=== PATIENT | female | born 1950 | race African-American/Black ===

== ENCOUNTER 2017-08-21 06:43 | Emergency (ER) | payer MEDICARE, OTHER ==
[2017-08-21] MEDS ORDERED: ACETAMINOPHEN WITH CODEINE 120-12 MG/5 ML UDCUP PO ONE (07:35)
--- NOTE | 2017-08-21 08:18 | RADIOLOGY REPORT (SQ) ---
EXAM DESCRIPTION: CHEST PA/LAT COMPLETED DATE/TIME: 08/21/2017 7:57 am REASON FOR STUDY: productive cough COMPARISON: None. EXAM PARAMETERS: NUMBER OF VIEWS: two views TECHNIQUE: Digital Frontal and Lateral radiographic views of the chest acquired. RADIATION DOSE: NA LIMITATIONS: none FINDINGS: LUNGS AND PLEURA: No opacities, masses or pneumothorax. No pleural effusion. MEDIASTINUM AND HILAR STRUCTURES: No masses or contour abnormalities. HEART AND VASCULAR STRUCTURES: Heart normal size. No evidence for failure. BONES: No acute findings. HARDWARE: None in the chest. OTHER: No other significant finding. IMPRESSION: NO SIGNIFICANT RADIOGRAPHIC FINDING IN THE CHEST. TECHNICAL DOCUMENTATION: JOB ID: [id number] [employer]- All Rights Reserved Reading location - IP/workstation name: [email or web address]
--- NOTE | 2017-08-21 08:32 | ER Document Report ---
ED Flu Like - General Chief Complaint: Flu Symptoms Stated Complaint: BODY ACHES Time Seen by Provider: 08/21/17 07:26 Mode of Arrival: Ambulatory Information source: Patient Notes: Patient is a 67-year-old female who presents to the ER today for 1 week of productive cough,, intermittent feelings of hot flashes and chills, she has not taken her temperature. She admits to sinus pressure in her face and headache. She admits to runny nose and sore throat, hoarse voice. Patient has no history of asthma or COPD. She denies any shortness of breath or wheezing. TRAVEL OUTSIDE OF THE [place] IN LAST 30 DAYS: No - Related Data Allergies/Adverse Reactions: ampicillin [Ampicillin] Allergy (Verified 03/07/16 11:35) Past Medical History - General Information source: Patient - Social History Smoking Status: Never Smoker Frequency of alcohol use: None Drug Abuse: None Family History: Hypertension Patient has suicidal ideation: No Patient has homicidal ideation: No - Past Medical History Cardiac Medical History: Reports: Hx Hypertension Renal/ Medical History: Denies: Hx Peritoneal Dialysis Past Surgical History: Reports: Hx Appendectomy, Hx Tonsillectomy, Hx Tubal Ligation - Immunizations Immunizations up to date: Yes Hx Diphtheria, Pertussis, Tetanus Vaccination: Yes Review of Systems - Review of Systems Constitutional: See HPI EENT: See HPI Cardiovascular: No symptoms reported Respiratory: See HPI Gastrointestinal: No symptoms reported Genitourinary: No symptoms reported Female Genitourinary: No symptoms reported Musculoskeletal: No symptoms reported Skin: No symptoms reported Hematologic/Lymphatic: No symptoms reported Neurological/Psychological: No symptoms reported Physical Exam - Vital signs Vitals: Temp Pulse Resp BP Pulse Ox 99.4 F 87 20 168/80 H 97 08/21/17 06:49 08/21/17 06:49 08/21/17 06:49 08/21/17 06:49 08/21/17 06:49 - Notes Notes: PHYSICAL EXAMINATION: GENERAL: Mildly ill-appearing, but in no acute distress. HEAD: Atraumatic, normocephalic. EYES: Pupils equal round and reactive to light, extraocular movements intact, sclera anicteric, conjunctiva are normal. ENT: ear canals without erythema or foreign body, TMs pearly dudley with good bony landmarks, nares with mucoid discharge , oropharynx erythematous without enlarged tonsils without exudates. Moist mucous membranes. maxillary and frontal sinuses tender to palpation NECK: Normal range of motion, supple without lymphadenopathy LUNGS: Cough, otherwise CTAB and equal. No wheezes rales or rhonchi. HEART: Regular rate and rhythm without murmurs EXTREMITIES: Normal range of motion, no pitting edema. No cyanosis. NEUROLOGICAL: Cranial nerves grossly intact. Normal sensory/motor exams. PSYCH: Normal mood, normal affect. SKIN: Warm, Dry, normal turgor, no rashes or lesions noted Course - Re-evaluation Re-evalutation: 08/21/17 08:33 Chest x-ray negative for any acute pathology, with length of patient's symptoms I will treat her with antibiotic and cough medication. - Vital Signs Vital signs: Temp Pulse Resp BP Pulse Ox 99.4 F 87 20 168/80 H 97 08/21/17 06:49 08/21/17 06:49 08/21/17 06:49 08/21/17 06:49 08/21/17 06:49 Discharge - Discharge Clinical Impression: Bronchitis Sinusitis Qualifiers: Sinusitis location: maxillary Chronicity: acute Recurrence: non-recurrent Qualified Code(s): J01.00 - Acute maxillary sinusitis, unspecified Condition: Stable Disposition: HOME, SELF-CARE Additional Instructions: Return immediately for any new or worsening symptoms. Follow up with primary care provider, call tomorrow to make followup appointment. Prescriptions: Hydrocodone Bit/Homatropine [Hycodan Syrup 5-1.5 mg/5 ml Ud Cup] 5 ml PO Q4HP PRN #120 ml PRN Reason: Azithromycin [Zithromax 250 mg Tablet] 250 mg PO ASDIR PRN #6 tablet PRN Reason: Fluticasone Propionate [Flonase Nasal [place] 50 Mcg/[place] 16 gm] 2 sprays NASL Q12 #1 inhaler Forms: Return to Work
[2017-08-21 08:47] VITALS: BP 146/71
== END 2017-08-21 08:47 | disposition home or self-care (01) ==
LOC: ER 06:43
DX: J01.00 Acute maxillary sinusitis, unspecified (principal); J40 Bronchitis, not specified as acute or chronic; R05 Cough; R68.83 Chills (without fever); R51 Headache; J02.9 Acute pharyngitis, unspecified; R49.0 Dysphonia; Z88.0 Allergy status to penicillin; I10 Essential (primary) hypertension
CPT/HCPCS: 99283; 71046; A9270; J3490

== ENCOUNTER 2018-02-16 00:09 | Emergency (ER) | payer MEDICARE, OTHER ==
--- NOTE | 2018-02-16 01:39 | RADIOLOGY REPORT (SQ) ---
EXAM DESCRIPTION: XR CHEST 1 VIEW COMPLETED DATE/TME: 02/16/2018 01:19 CLINICAL HISTORY: 67 years, Female, cp COMPARISON: 08/21/2017 NUMBER OF VIEWS: One TECHNIQUE: AP view of the chest LIMITATIONS: None. FINDINGS: The lungs are clear. The heart is at the upper limit of normal in size. There is no pneumothorax or pleural effusion. There is no acute fracture IMPRESSION: No acute cardiopulmonary abnormality 2010 [employer]- All Rights Reserved
[2018-02-16] MEDS ORDERED: AZITHROMYCIN 250 MG TABLET PO ONE (03:45)
--- NOTE | 2018-02-16 03:47 | ER Document Report ---
ED General - General TRAVEL OUTSIDE OF THE [place] IN LAST 30 DAYS: No <AUNDREA LYNCH - Last Filed: 02/16/18 03:41> <WILLIAN GARDNER - Last Filed: 02/16/18 07:27> - General Chief Complaint: Chest Pain Stated Complaint: CHEST TIGHTNESS Time Seen by Provider: 02/16/18 01:19 Notes: Patient is a 67-year-old female who presents with multiple complaints. Her first and primary concern is that she continues to have mucousy diarrhea that has been ongoing for approximate the past 1 week. She has been seen on 2 separate occasions at [facility], was diagnosed with Salmonella based on a stool culture. She was prescribed levofloxacin but did not finish this medication stating that it caused her to have nausea and vomiting. She has not received any alternative antibiotic and continues to have this diarrhea. Her second complaint is that she had a brief episode of chest pain earlier today. She states that approximately 10-12 hours prior to arrival she had a 20-minute episode of pressure or tightness over the left side of her chest. She states that she attributes this to having not taken her blood pressure medications as after she took the blood pressure medication the pain went away. She denies any known cardiac history. She has not contacted her primary care doctor regarding this concern. Nothing improves or worsens the discomfort which she states is long since gone. (AUNDREA LYNCH) - Related Data Allergies/Adverse Reactions: ampicillin [Ampicillin] Allergy (Verified 03/07/16 11:35) Past Medical History - General Information source: Patient - Social History Smoking Status: Never Smoker Chew tobacco use (# tins/day): No Frequency of alcohol use: None Drug Abuse: None Lives with: Family Family History: Hypertension Patient has suicidal ideation: No Patient has homicidal ideation: No - Past Medical History Cardiac Medical History: Reports: Hx Hypertension Renal/ Medical History: Denies: Hx Peritoneal Dialysis Past Surgical History: Reports: Hx Appendectomy, Hx Tonsillectomy, Hx Tubal Ligation - Immunizations Immunizations up to date: Yes Hx Diphtheria, Pertussis, Tetanus Vaccination: Yes <AUNDREA LYNCH - Last Filed: 02/16/18 03:41> Review of Systems <AUNDREA LYNCH - Last Filed: 02/16/18 03:41> <WILLIAN GARDNER - Last Filed: 02/16/18 07:27> - Review of Systems Notes: Constitutional: Negative for fever. HENT: Negative for sore throat. Eyes: Negative for visual changes. Cardiovascular: Positive for chest pain now resolved Respiratory: Negative for shortness of breath. Gastrointestinal: Negative for abdominal pain, positive for diarrhea Genitourinary: Negative for dysuria. Musculoskeletal: Negative for back pain. Skin: Negative for rash. Neurological: Negative for headaches, weakness or numbness. 10 point ROS negative except as marked above and in HPI. (AUNDREA LYNCH) Physical Exam - Vital signs Interpretation: Hypertensive <AUNDREA LYNCH - Last Filed: 02/16/18 03:41> <WILLIAN GARDNER - Last Filed: 02/16/18 07:27> - Vital signs Vitals: Temp Pulse Resp BP Pulse Ox 98.6 F 80 18 156/80 H 100 02/16/18 00:09 02/16/18 00:09 02/16/18 00:09 02/16/18 00:09 02/16/18 00:09 Notes: PHYSICAL EXAMINATION: GENERAL: Well-appearing, well-nourished and in no acute distress. HEAD: Atraumatic, normocephalic. EYES: Pupils equal round and reactive to light, extraocular movements intact, sclera anicteric, conjunctiva are normal. ENT: nares patent, oropharynx clear without exudates. Moist mucous membranes. NECK: Normal range of motion, supple without lymphadenopathy LUNGS: Breath sounds clear to auscultation bilaterally and equal. No wheezes rales or rhonchi. HEART: Regular rate and rhythm without murmurs ABDOMEN: Soft, nontender, normoactive bowel sounds. No guarding, no rebound. No masses appreciated. EXTREMITIES: Normal range of motion, no pitting or edema. No cyanosis. NEUROLOGICAL: No focal neurological deficits. Moves all extremities spontaneously and on command. PSYCH: Highly anxious, tearful SKIN: Warm, Dry, normal turgor, no rashes or lesions noted. (AUNDREA LYNCH) Course - Diagnostic Test Radiology reviewed: Image reviewed, Reports reviewed <AUNDREA LYNCH - Last Filed: 02/16/18 03:41> - Laboratory Result Diagrams: 02/16/18 03:44 02/16/18 03:44 <WILLIAN GARDNER - Last Filed: 02/16/18 07:27> - Re-evaluation Re-evalutation: 02/16/18 03:42 Patient presents as extremely anxious about blood draws, has refused blood draws repeatedly but I find the Bentyl convince her to allow us to obtain blood work to definitively exclude an acute infarction event with a troponin assay testing. She has not had chest pain over 10 hours at the time of my assessment , very low clinical suspicion for a cardiac etiology of the brief episode of chest pain earlier. EKG unremarkable. Chest x-ray is clear. Patient will be transitioned to azithromycin due to her inability to tolerate levofloxacin for treatment of her Salmonella infection. She has received 1000 mill grams here in the emergency department will go on 500 mg daily for the next 7 days. As long as her labs are overall unremarkable plan for discharge home. (AUNDREA LYNCH ) - Vital Signs Vital signs: Temp Pulse Resp BP Pulse Ox 97.3 F 86 19 152/72 H 97 02/16/18 05:28 02/16/18 05:28 02/16/18 05:28 02/16/18 05:28 02/16/18 05:28 - Laboratory Laboratory results interpreted by me: 02/16/18 02/16/18 03:44 03:44 Hgb 10.8 L Hct 32.6 L RDW 14.7 H Plt Count 452 H Potassium 3.4 L Chloride 109 H Albumin 3.2 L Lipase 557.0 H - Diagnostic Test Radiology results interpreted by me: 02/16/18 03:43 Chest x-ray: No acute infiltrate or pneumothorax (AUNDREA LYNCH) - EKG Interpretation by Me Additional EKG results interpreted by me: 02/16/18 03:43 Sinus rhythm. Rate 75. No ST elevations or depressions. QTC is 389. (AUNDREA LYNCH) Discharge <AUNDREA LYNCH - Last Filed: 02/16/18 03:41> - Discharge Admitting Provider: Hospitalist Unit Admitted: Telemetry <WILLIAN GARDNER - Last Filed: 02/16/18 07:27> - Discharge Clinical Impression: Salmonella, Elevated troponin Chest pain Qualifiers: Chest pain type: unspecified Qualified Code(s): R07.9 - Chest pain, unspecified Diarrhea Qualifiers: Diarrhea type: unspecified type Qualified Code(s): R19.7 - Diarrhea, unspecified Disposition: ADMITTED OBSERVATION Additional Instructions: Please continue to complete all of the antibiotics have been prescribed today. Your diarrhea will not resolve without antibiotic treatment. Follow the return precautions as recommended by the doctors at [facility]. You were also seen today for chest pain. The exact cause of your pain is unclear. However, based on your cardiac enzyme testing, chest x-ray, and EKG it does not appear that it is from an immediately life-threatening cause at this time. Although your testing here is normal is critical that you follow-up with your primary care physician for continued evaluation of this chest pain and possible stress testing. I recommended you see your physician within the next 24-48 hours to be evaluated for consideration of a stress test. Please return to emergency department immediately if you have worsening of your chest pain, shortness of breath, vomiting, become unable to exert yourself due to pain or difficulty breathing, you pass out, or have any pain that radiates into your arms, jaw, or back. Please also return if you have any additional symptoms that are concerning to you. Prescriptions: Azithromycin 500 mg PO DAILY 7 Days #7 tablet Referrals: JESU SPARKS MD [Primary Care Provider] - Follow up as needed
[2018-02-16 03:54] LABS: ABSOLUTE BASOPHILS # (AUTO) 0.1 10^3/uL (0.0-0.2); ABSOLUTE EOSINOPHILS # (AUTO) 0.2 10^3/uL (0.0-0.6); ABSOLUTE LYMPHOCYTES (AUTO) 2.3 10^3/uL (0.5-4.7); ABSOLUTE MONOCYTES (AUTO) 0.6 10^3/uL (0.1-1.4); ABSOLUTE NEUT (AUTO) 4.4 10^3/uL (1.7-8.2); BASOPHILS % (AUTO) 0.7 % (0-2); EOSINOPHILS % (AUTO) 2.8 % (0-6); HEMATOCRIT 32.6 % (36.0-47.0); HEMOGLOBIN 10.8 g/dL (12.0-15.5); LYMPHOCYTES % (AUTO) 30.3 % (13-45); MEAN CORPUSCULAR HEMOGLOBIN 27.9 pg (27.0-33.4); MEAN CORPUSCULAR HGB CONC 33.2 g/dL (32.0-36.0); MEAN CORPUSCULAR VOLUME 84 fl (80-97); MONOCYTES % (AUTO) 8.4 % (3-13); PLATELET COUNT 452 10^3/uL (150-450); RED BLOOD COUNT 3.88 10^6/uL (3.72-5.28); RED CELL DISTRIBUTION WIDTH 14.7 % (11.5-14.0); SEGMENTED NEUTROPHILS % (AUTO) 57.8 % (42-78); TOTAL CELLS COUNTED % (AUTO) 100 %; WHITE BLOOD COUNT 7.6 10^3/uL (4.0-10.5)
[2018-02-16 04:06] LABS: ALANINE AMINOTRANSFERASE 32 U/L (9-52); ALBUMIN 3.2 g/dL (3.5-5.0); ALKALINE PHOSPHATASE 65 U/L (38-126); ANION GAP 7 (5-19); ASPARTATE AMINO TRANSFERASE 25 U/L (14-36); BILIRUBIN,DIRECT 0.4 mg/dL (0.0-0.4); BILIRUBIN,TOTAL 0.4 mg/dL (0.2-1.3); BLOOD UREA NITROGEN 9 mg/dL (7-20); CARBON DIOXIDE 25 mmol/L (22-30); CHLORIDE 109 mmol/L (98-107); GLUCOSE 105 mg/dL (75-110); POTASSIUM 3.4 mmol/L (3.6-5.0); SODIUM 141.1 mmol/L (137-145); TOTAL PROTEIN 6.7 g/dL (6.3-8.2)
[2018-02-16] MEDS ORDERED: ASPIRIN 325 MG TABLET PO ONE (06:50)
[2018-02-16 08:33] VITALS: BP 144/74
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
--- NOTE | 2018-02-16 20:53 | EKG REPORT ---
SEVERITY:- ABNORMAL ECG - SINUS RHYTHM BORDERLINE R WAVE PROGRESSION, ANTERIOR LEADS NONSPECIFIC T ABNORMALITIES, LATERAL LEADS : Confirmed by: Saundra Gusman MD 16-Feb-2018 20:52:06
--- NOTE | 2018-02-16 20:53 | EKG REPORT ---
SEVERITY:- BORDERLINE ECG - SINUS RHYTHM BORDERLINE R WAVE PROGRESSION, ANTERIOR LEADS BORDERLINE T WAVE ABNORMALITIES : Confirmed by: Saundra Gusman MD 16-Feb-2018 20:52:09
== END 2018-02-16 09:38 | disposition other institution (70) ==
LOC: ER 00:09 → EH 07:55 → UNDOADMOB 07:55 → UNDODISOB 09:37 → ER 09:38
DX: A02.9 Salmonella infection, unspecified (principal); R07.9 Chest pain, unspecified; R19.7 Diarrhea, unspecified; Z88.0 Allergy status to penicillin; Z98.51 Tubal ligation status
CPT/HCPCS: 93005; 99285; 36415; 83690; 85025; 80053; 84484; 71045; 93010; A9270 ×2

== ENCOUNTER 2018-02-16 10:39 | Emergency (ER) | payer MEDICARE ==
[2018-02-16 10:46] VITALS: BP 159/71
[2018-02-16] MEDS ORDERED: ASPIRIN 81 MG TABLET, CHEWABLE PO ONE (11:33)
--- NOTE | 2018-02-16 11:34 | ER Document Report ---
ED General - General Chief Complaint: Chest Pain Stated Complaint: CHEST TIGHTNESS Time Seen by Provider: 02/16/18 11:15 Mode of Arrival: Ambulatory Information source: Patient Notes: 67-year-old female presents emergency department with complaints of chest pain. Patient states that she had an episode of chest pain last night around 11 PM. Patient states that as a pressure sensation located in the center of her chest. She denies any radiation of the pain. She denies any exacerbating factors. Patient states that she took her blood pressure medication and her chest pain resolved. Patient states that she has been pain-free since 11 PM. Patient states that she had elevated cardiac enzymes and the ER physician wanted to admit her to the hospital. Patient states that she left AGAINST MEDICAL ADVICE because she did not have any way of letting her family know what was going on. Patient's coming back to the emergency department today for admission. Hx of hypertension. Denies hyperlipidemia, CAD, DM, family hx of CAD , smoking. TRAVEL OUTSIDE OF THE [place] IN LAST 30 DAYS: No - HPI Onset: Yesterday Onset/Duration: Sudden Quality of pain: Pressure - Related Data Allergies/Adverse Reactions: ampicillin [Ampicillin] Allergy (Verified 02/16/18 10:41) Past Medical History - General Information source: Patient - Social History Smoking Status: Never Smoker Family History: Hypertension - Past Medical History Cardiac Medical History: Reports: Hx Hypertension Renal/ Medical History: Denies: Hx Peritoneal Dialysis Past Surgical History: Reports: Hx Appendectomy, Hx Tonsillectomy, Hx Tubal Ligation - Immunizations Immunizations up to date: Yes Hx Diphtheria, Pertussis, Tetanus Vaccination: Yes Review of Systems - Review of Systems Constitutional: No symptoms reported EENT: No symptoms reported Cardiovascular: No symptoms reported Respiratory: No symptoms reported Gastrointestinal: No symptoms reported Genitourinary: No symptoms reported Female Genitourinary: No symptoms reported Musculoskeletal: No symptoms reported Skin: No symptoms reported Hematologic/Lymphatic: No symptoms reported Neurological/Psychological: No symptoms reported -: Yes All other systems reviewed and negative Physical Exam - Vital signs Vitals: Temp Pulse Resp BP Pulse Ox 97.6 F 82 16 159/71 H 98 02/16/18 10:45 02/16/18 10:45 02/16/18 10:45 02/16/18 10:45 02/16/18 10:45 - Notes Notes: PHYSICAL EXAMINATION: GENERAL: Well-appearing, well-nourished and in no acute distress. HEAD: Atraumatic, normocephalic. EYES: Pupils equal round and reactive to light, extraocular movements intact, conjunctiva are normal. ENT: Nares patent, oropharynx clear without exudates. Moist mucous membranes. NECK: Normal range of motion, supple without lymphadenopathy LUNGS: Breath sounds clear to auscultation bilaterally and equal. No wheezes rales or rhonchi. HEART: Regular rate and rhythm without murmurs ABDOMEN: Soft, nontender, nondistended abdomen. No guarding, no rebound. No masses appreciated. Female : deferred Musculoskeletal: Normal range of motion, no pitting or edema. No cyanosis. NEUROLOGICAL: Cranial nerves grossly intact. Normal speech, normal gait. Normal sensory, motor exams PSYCH: Normal mood, normal affect. SKIN: Warm, Dry, normal turgor, no rashes or lesions noted. Course - Re-evaluation Re-evalutation: 02/16/18 12:45 Patient requesting to leave AGAINST MEDICAL ADVICE again. Risks were discussed with the patient. Patient understands that she may or her condition may worsen by leaving AGAINST MEDICAL ADVICE. Patient is competent to make decisions. - Vital Signs Vital signs: Temp Pulse Resp BP Pulse Ox 97.6 F 82 16 159/71 H 98 02/16/18 10:45 02/16/18 10:45 02/16/18 10:45 02/16/18 10:45 02/16/18 10:45 Discharge - Discharge Clinical Impression: Chest pain Qualifiers: Chest pain type: unspecified Qualified Code(s): R07.9 - Chest pain, unspecified Condition: Serious Disposition: AGAINST MEDICAL ADVICE Referrals: JESU SPARKS MD [NO LOCAL MD] - Follow up as needed
--- NOTE | 2018-02-16 11:59 | RADIOLOGY REPORT (SQ) ---
EXAM DESCRIPTION: CHEST SINGLE VIEW COMPLETED DATE/TIME: 02/16/2018 11:51 am REASON FOR STUDY: chest pain COMPARISON: 02/16/2018 at 0128 hours. EXAM PARAMETERS: NUMBER OF VIEWS: One view. TECHNIQUE: Single frontal radiographic view of the chest acquired. RADIATION DOSE: NA LIMITATIONS: None. FINDINGS: LUNGS AND PLEURA: No opacities, masses or pneumothorax. No pleural effusion. MEDIASTINUM AND HILAR STRUCTURES: No masses. Contour normal. HEART AND VASCULAR STRUCTURES: Heart normal in size. Normal vasculature. BONES: No acute findings. HARDWARE: None in the chest. OTHER: No other significant finding. IMPRESSION: NO ACUTE RADIOGRAPHIC FINDING IN THE CHEST. TECHNICAL DOCUMENTATION: JOB ID: [id number] [employer]- All Rights Reserved Reading location - IP/workstation name: [email or web address]
== END 2018-02-16 12:49 | disposition left against medical advice (07) ==
LOC: ER 10:39
DX: R07.9 Chest pain, unspecified (principal); I10 Essential (primary) hypertension; Z88.0 Allergy status to penicillin; Z98.51 Tubal ligation status
CPT/HCPCS: 99284; 71045; A9270; 36415

== ENCOUNTER 2019-03-12 19:22 | Emergency (ER) | payer MEDICARE, OTHER ==
[2019-03-12 20:20] VITALS: BP 158/74
--- NOTE | 2019-03-12 20:23 | ER Document Report ---
ED General - General Chief Complaint: High Blood Pressure Stated Complaint: BLOOD PRESSURE ISSUES Time Seen by Provider: 03/12/19 20:17 Primary Care Provider: HOLLEY BARNES FNP-C [Primary Care Provider] - Follow up as needed Notes: 68 year old female arrives with complaints of lightheadedness earlier. Came here to have BP checked actually. No chest pain or headache or visual change or sob. No fever or chills. TRAVEL OUTSIDE OF THE [place] IN LAST 30 DAYS: No - HPI Onset: Just prior to arrival Onset/Duration: Gradual Quality of pain: No pain Severity: Mild Associated symptoms: None Exacerbated by: Denies Relieved by: Denies - Related Data Allergies/Adverse Reactions: ampicillin [Ampicillin] Allergy (Verified 03/12/19 19:34) Past Medical History - Social History Smoking Status: Never Smoker Chew tobacco use (# tins/day): No Frequency of alcohol use: None Drug Abuse: None Family History: Hypertension Patient has suicidal ideation: No Patient has homicidal ideation: No - Past Medical History Cardiac Medical History: Reports: Hx Hypertension Renal/ Medical History: Denies: Hx Peritoneal Dialysis Past Surgical History: Reports: Hx Appendectomy, Hx Tonsillectomy, Hx Tubal Ligation - Immunizations Immunizations up to date: Yes Hx Diphtheria, Pertussis, Tetanus Vaccination: Yes Review of Systems - Review of Systems Constitutional: No symptoms reported EENT: No symptoms reported Cardiovascular: No symptoms reported Respiratory: No symptoms reported Gastrointestinal: No symptoms reported Genitourinary: No symptoms reported Female Genitourinary: No symptoms reported Musculoskeletal: No symptoms reported Skin: No symptoms reported Hematologic/Lymphatic: No symptoms reported Neurological/Psychological: No symptoms reported Physical Exam - Vital signs Vitals: Temp Pulse Resp BP Pulse Ox 97.8 F 74 20 175/79 H 97 03/12/19 19:31 03/12/19 19:31 03/12/19 19:31 03/12/19 19:31 03/12/19 19:31 Interpretation: Normal - General General appearance: Appears well, Alert - HEENT Head: Normocephalic, Atraumatic Eyes: Normal Pupils: PERRL - Respiratory Respiratory status: No respiratory distress Chest status: Nontender Breath sounds: Normal Chest palpation: Normal - Cardiovascular Rhythm: Regular Heart sounds: Normal auscultation Murmur: No - Abdominal Inspection: Normal Distension: No distension Bowel sounds: Normal Tenderness: Nontender Organomegaly: No organomegaly - Back Back: Normal, Nontender - Extremities General upper extremity: Normal inspection, Nontender, Normal color, Normal ROM, Normal temperature General lower extremity: Normal inspection, Nontender, Normal color, Normal ROM, Normal temperature, Normal weight bearing. No: Sebastien's sign - Neurological Neuro grossly intact: Yes Cognition: Normal Orientation: AAOx4 [place] Coma Scale Eye Opening: Spontaneous [place] Coma Scale Verbal: Oriented [place] Coma Scale Motor: Obeys Commands [place] Coma Scale Total: 15 Speech: Normal Motor strength normal: LUE, RUE, LLE, RLE Sensory: Normal - Psychological Associated symptoms: Normal affect, Normal mood - Skin Skin Temperature: Warm Skin Moisture: Dry Skin Color: Normal Course - Re-evaluation Re-evalutation: 03/12/19 20:21 MDM 68 year old with htn follows at [facility] locally and wanted her BP checked. She wants no blood work or further workup. Tells me she had physical with comprehensive blood work about a week or so ago. She has no concerning symptoms. We discussed concerning signs and follow up and she expressed understanding. - Vital Signs Vital signs: Temp Pulse Resp BP Pulse Ox 97.8 F 74 20 175/79 H 97 03/12/19 19:31 03/12/19 19:31 03/12/19 19:31 03/12/19 19:31 03/12/19 19:31 Discharge - Discharge Clinical Impression: Hypertension Condition: Good Disposition: HOME, SELF-CARE Instructions: High Blood Pressure, Requiring Treatment ([facility]), High Blood Pressure ([facility]), Diet to Decrease Risk of Heart Attack ([facility]) Additional Instructions: Look up mediterranean diet and try to follow that. Please return here for any problems or any concerns. Take your medicine as directed and return here for chest pain or shortness of breath or any other concerns. Referrals: HOLLEY BARNES FNP-C [Primary Care Provider] - Follow up as needed
== END 2019-03-12 20:35 | disposition home or self-care (01) ==
LOC: ER 19:22
DX: I10 Essential (primary) hypertension (principal); R42 Dizziness and giddiness
CPT/HCPCS: 99283